=== PATIENT | female | born 1975 | race Caucasian/White ===

== ENCOUNTER 2023-02-18 11:24 | Emergency (ER) | payer OTHER, SELFPAY ==
[2023-02-18 11:28] VITALS: BP 155/108; PULSE 82; RESP 24; TEMP 36.4; O2SAT 99; BMI 38.8
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
[2023-02-18] MEDS: oxyCODONE 5 MG Tablet PO (12:28)
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
== END 2023-02-18 15:14 | disposition home or self-care (01) ==
PROVIDERS: Emergency Provider Emergency Medicine; Visit Provider Emergency Medicine
DX: S52.572A Other intraarticular fracture of lower end of left radius, initial encounter for closed fracture (principal); V43.52XA Car driver injured in collision with other type car in traffic accident, initial encounter
CPT/HCPCS: 29515; 71101; 73090; 73110; 73564; 99285